=== PATIENT | male | born 1990 | race Hispanic/Latino ===

== ENCOUNTER 2021-05-10 09:33 | Emergency (ER) | payer OTHER ==
[~2021-05-10] VITALS: Ht 167.6 cm; Wt 20.0 kg
[2021-05-10] MEDS ORDERED: VENTAER INH (09:43)
[2021-05-10] MEDS ORDERED: IBUP1TAB7 PO (09:43)
[2021-05-10] MEDS ORDERED: COMBIVENT RESPIMAT 100-20MCG INHALER 4GM INH STA (10:10)
[2021-05-10] MEDS ORDERED: methylPREDNISolone 125MG 2ML VIAL IV ONE (10:10)
[2021-05-10 10:59] VITALS: O2SAT 95
[2021-05-10 11:15] LABS: BASO # 0.1 10^3/uL (0.0-0.2); BASO % 0.7 % (0.0-1.0); EOS # 0.5 10^3/uL (0.0-0.5); EOS % 3.7 % (0.0-3.0); HEMATOCRIT 47.8 % (42.0-52.0); HEMOGLOBIN 16.2 g/dl (13.5-17.5); LYMPH # 2.5 10^3/uL (1.5-5.0); LYMPH % 18.6 % (24.0-44.0); MEAN CORPUSCULAR HEMOGLOBIN 29.9 pg (27.0-33.0); MEAN CORPUSCULAR HGB CONC 33.9 g/dl (32.0-36.5); MEAN CORPUSCULAR VOLUME 88.2 fl (80.0-96.0); MONO # 1.1 10^3/uL (0.0-0.8); MONO % 7.9 % (2.0-8.0); NEUTROPHILS # 9.2 10^3/uL (1.5-8.5); NEUTROPHILS % 68.7 % (36.0-66.0); PLATELET COUNT, AUTOMATED 302 10^3/uL (150-450); RED BLOOD COUNT 5.42 10^6/uL (4.30-6.10); WHITE BLOOD COUNT 13.4 10^3/uL (4.0-10.0)
[2021-05-10 11:36] LABS: ALBUMIN 4.1 GM/DL (3.2-5.2); ALT/SGPT 35 U/L (12-78); BILIRUBIN,DIRECT 0.1 MG/DL (0.0-0.2); BILIRUBIN,TOTAL 0.5 MG/DL (0.2-1.0); BLOOD UREA NITROGEN 12 MG/DL (7-18); CALCIUM LEVEL 9.4 MG/DL (8.5-10.1); CARBON DIOXIDE LEVEL 31 MEQ/L (21-32); CHLORIDE LEVEL 104 MEQ/L (98-107); CREATININE FOR GFR 0.98 MG/DL (0.70-1.30); GLOMERULAR FILTRATION RATE > 60.0 (>60); GLUCOSE, FASTING 78 MG/DL (70-100); SODIUM LEVEL 141 MEQ/L (136-145); TOTAL PROTEIN 7.8 GM/DL (6.4-8.2)
[2021-05-10] MEDS ORDERED: ISOVUE-370 76% 100ML VIAL As Ordered ONE (11:44)
[2021-05-10 12:08] LABS: NT-PRO BNP 15 PG/ML (<125)
[2021-05-10] MEDS ORDERED: IPRATROPIUM 0.5MG/ALBUTEROL 2.5MG INH SOL UD 3ML (DUONEB) NEB STA (12:20)
[2021-05-10 12:55] LABS: HIV 1&2 SCREEN CENTAUR NEGATIVE (NEGATIVE)
[2021-05-10] MEDS ORDERED: COMBAER6 INH (12:57)
[2021-05-10] MEDS ORDERED: PRED20TA PO (12:57)
[2021-05-10] MEDS ORDERED: DOXY-443 PO (12:57)
[2021-05-10] MEDS: MAG SULF 1GM/100ML (MAG RUN) 1 GM in IV 1 EA IV SCH ×2 (13:12→13:26)
[2021-05-10 14:08] VITALS: BP 131/79
== END 2021-05-10 14:23 | disposition home or self-care (01) ==
LOC: M ED 11:12
DX: J20.9 Acute bronchitis, unspecified (principal); J02.9 Acute pharyngitis, unspecified; R19.7 Diarrhea, unspecified
CPT/HCPCS: 71046; 71260; 80048; 80076; 83605; 83880; 84145; 85025; 85379; 87040; 87389; 94640; 96365; 96375; 99284; J2930; J3475; Q9967

== ENCOUNTER → 2021-10-08 | Outpatient (CLI) | payer OTHER ==
[~2021-10-08] MED LIST: COMBAER6 INH; DOXY-443 PO; IBUP1TAB7 PO; METHACHOLINE KIT (J7674) INH ONE; PRED20TA PO; VENTAER INH
== END ==
LOC: M CARPUL 14:53
PROVIDERS: ATTEND Nurse Practitioner Family
DX: R06.00 Dyspnea, unspecified (principal)
CPT/HCPCS: 94070; J7674

== ENCOUNTER 2022-09-10 18:15 | Emergency (ER) | payer OTHER ==
[~2022-09-10] VITALS: Ht 167.6 cm; Wt 83.7 kg
[~2022-09-10 18:15] MED LIST changes: -METHACHOLINE KIT (J7674) INH ONE
[2022-09-10] MEDS ORDERED: ASPE4PAD TOP (20:24)
[2022-09-10] MEDS ORDERED: NAPR-837 PO (20:24)
[2022-09-10] MEDS ORDERED: METH-1165 PO (20:24)
[2022-09-10] MEDS ORDERED: LIDOCAINE 5% (LIDODERM) PATCH TD ONE (20:25)
[2022-09-10] MEDS ORDERED: KETOROLAC 60MG 2ML VIAL IM ONE (20:25)
[2022-09-10] MEDS ORDERED: methocarbamoL 750 MG TAB PO ONE (20:25)
[2022-09-10 20:45] VITALS: BP 121/80
== END 2022-09-10 20:46 | disposition home or self-care (01) ==
LOC: M ED 18:15
DX: M54.50 Low back pain, unspecified (principal); J45.909 Unspecified asthma, uncomplicated; Z79.52 Long term (current) use of systemic steroids; Z79.1 Long term (current) use of non-steroidal anti-inflammatories (NSAID); Z79.899 Other long term (current) drug therapy
CPT/HCPCS: 96372; 99283; J1885

== ENCOUNTER → 2023-06-30 | Outpatient (CLI) | payer OTHER ==
[~2023-06-30] MED LIST changes: +ASPE4PAD TOP; +METH-1165 PO; +NAPR-837 PO
== END ==
LOC: M PLALAB 15:53
PROVIDERS: ATTEND Nurse Practitioner Family
DX: J45.30 Mild persistent asthma, uncomplicated (principal)

== ENCOUNTER → 2023-07-29 | Outpatient (CLI) | payer OTHER ==
[~2023-07-29] MED LIST changes: +PYRI1TAB5 PO
== END ==
LOC: M PLAIMG 06:36
PROVIDERS: ATTEND Physician Assistant Medical
DX: S63.072A Subluxation of distal end of left ulna, initial encounter (principal); X58.XXXA Exposure to other specified factors, initial encounter; Y92.9 Unspecified place or not applicable

== ENCOUNTER 2023-07-31 20:10 | Emergency (ER) | payer OTHER ==
[~2023-07-31] VITALS: Ht 165.1 cm; Wt 89.8 kg
[~2023-07-31 20:10] MED LIST changes: -PYRI1TAB5 PO
[2023-07-31 22:08] LABS: Trichomonas vaginalis (AMP) NOT DETECTED (NEGATIVE)
[2023-07-31 22:31] LABS: GC DNA AMPLIFICATION NEGATIVE (NEGATIVE)
[2023-07-31] MEDS ORDERED: PYRI1TAB5 PO (23:13)
[2023-07-31] MEDS: PHENAZOPYRIDINE 100 MG TAB PO ONE (23:25)
[2023-07-31 23:29] VITALS: BP 118/74; TEMP 97.3; O2SAT 97
== END 2023-07-31 23:39 | disposition home or self-care (01) ==
LOC: M ED 20:10
DX: N34.1 Nonspecific urethritis (principal); Z79.52 Long term (current) use of systemic steroids; Z79.83 Long term (current) use of bisphosphonates

== ENCOUNTER 2023-12-29 17:54 | Emergency (ER) | payer OTHER ==
[~2023-12-29] VITALS: Ht 172.7 cm; Wt 86.8 kg
[~2023-12-29 17:54] MED LIST changes: +DOXY-323 PO; -DOXY-443 PO; +PYRI1TAB5 PO
[2023-12-29 21:42] VITALS: O2SAT 98
[2023-12-29 23:49] VITALS: BP 124/68; TEMP 98
[2023-12-30 00:04] LABS: Trichomonas vaginalis (AMP) NOT DETECTED (NEGATIVE)
[2023-12-30 00:28] LABS: GC DNA AMPLIFICATION NEGATIVE (NEGATIVE)
== END 2023-12-29 23:50 | disposition home or self-care (01) ==
LOC: M ED 17:54
DX: M54.50 Low back pain, unspecified (principal); N50.811 Right testicular pain; J45.909 Unspecified asthma, uncomplicated; Z79.52 Long term (current) use of systemic steroids; Z79.899 Other long term (current) drug therapy